=== PATIENT | male | born 1950 | race Hispanic/Latino ===

== ENCOUNTER → 2019-10-27 | Outpatient (CLI) | payer OTHER ==
[~2019-10-27] MED LIST: ALLO300T2 PO; AMLO5TAB4 PO; ASPI-1005 PO; HYDR-4457 PO; LEVO50TA4 PO; PANT40TA PO; RAMI10CA58 PO; SIMV40TA2 PO
== END | disposition home or self-care (01) ==
LOC: EDBD 10:40 → RAH 10:40
PROVIDERS: ATTEND Internal Medicine Critical Care Medicine
DX: Z13.6 Encounter for screening for cardiovascular disorders (principal)
CPT/HCPCS: 75571

== ENCOUNTER 2019-11-09 12:30 | Inpatient (IN) | payer MEDICARE ==
[~2019-11-09] VITALS: Ht 181.6 cm; Wt 120.7 kg
[2019-11-09 15:53] LABS: BASOPHILS % (AUTO) 0.6 % (0.0-5.0); EOSINOPHILS % (AUTO) 3.3 % (0.0-8.0); HEMATOCRIT 45.9 % (42-54); LYMPHOCYTES % (AUTO) 33.3 % (21.0-51.0); MEAN CORPUSCULAR HEMOGLOBIN 32.6 pg (27.0-33.0); MEAN CORPUSCULAR HGB CONC 35.1 g/dL (32.0-36.0); MEAN CORPUSCULAR VOLUME 92.9 fL (79-99); MONOCYTES % (AUTO) 7.9 % (3.0-13.0); NEUTROPHILS % (AUTO) 54.6 % (40.0-77.0); PLATELET COUNT (AUTO) 179 K/uL (130-400); RED BLOOD CELL COUNT(AUTO) 4.94 MIL/uL (4.50-6.20); WHITE BLOOD COUNT (AUTO) 7.9 K/uL (4.8-10.8)
[2019-11-09 16:05] LABS: CREATININE 0.9 mg/dL (0.5-1.5); INR 0.96 (0.85-1.15); PROTHROMBIN TIME 10.4 SEC (9.6-11.6)
[2019-11-09 16:50] LABS: APPEARANCE,URINE Clear (CLEAR); BILIRUBIN,URINE Negative (NEGATIVE); COLOR,URINE Yellow (YELLOW); GLUCOSE, URINE (UA) Negative (NEGATIVE); KETONES,URINE Negative (NEGATIVE); LEUKOCYTE ESTERASE ,URINE Negative (NEGATIVE); NITRATE,URINE Negative (NEGATIVE); OCCULT BLOOD,URINE Negative (NEGATIVE); PROTEIN,URINE Negative (NEGATIVE)
[2019-11-16] MEDS ORDERED: CEFAZOLIN 3GM /D5W 100ML 100 ML IV SCH (06:00)
[2019-11-22 14:25] VITALS: BP 133/84
[2019-11-22] MEDS ORDERED: PANT40TA PO (15:05)
[2019-11-22] MEDS ORDERED: AMLO5TAB4 PO (15:05)
[2019-11-22] MEDS ORDERED: RAMI10CA58 PO (15:05)
[2019-11-22] MEDS ORDERED: SIMV40TA2 PO (15:05)
[2019-11-22] MEDS ORDERED: LEVO50TA4 PO (15:05)
[2019-11-22] MEDS ORDERED: ALLO300T2 PO (15:05)
[2019-11-23] VITALS (24 sets, daily range): BP systolic 127–158; BP diastolic 67–89
[2019-11-23] MEDS ORDERED: CEFAZOLIN SODIUM 1 GM VIAL ONE ×3 (07:54→18:50)
[2019-11-23] MEDS ORDERED: LACTATED RINGERS 1000ML 1,000 ML IV ONE (07:54)
--- NOTE | 2019-11-23 08:00 | NUR ---
preop pt arrived via w/c in no distress. pt oriented to room and call light. pt has edema to rt knee and small scrape. will continue to monitor pt.
[2019-11-23] MEDS ORDERED: SUCCINYLCHOLINE CHLORIDE 20 MG/ML 10 ML VIAL ONE (09:39)
[2019-11-23] MEDS ORDERED: PROPOFOL 10 MG/ML 20ML VIAL IV ONE (09:39)
[2019-11-23] MEDS ORDERED: GLYCOPYRROLATE 1 MG/5 ML SYRINGE ONE (09:39)
[2019-11-23] MEDS ORDERED: LIDOCAINE PF 2% 5ML ABBOJECT ONE (09:39)
[2019-11-23] MEDS ORDERED: DEXAMETHASONE SOD PHOSPHATE 10MG/ML 1ML VIAL ONE (09:39)
[2019-11-23] MEDS ORDERED: ROCURONIUM 10MG/1ML SYR 10 MG/ML ML ONE (09:40)
[2019-11-23] MEDS ORDERED: MIDAZOLAM HCL 1 MG/ML 2ML VIAL ONE (09:40)
[2019-11-23] MEDS ORDERED: ONDANSETRON HCL 4 MG/2 ML VIAL ONE (09:40)
[2019-11-23] MEDS ORDERED: NEOSTIGMINE 5MG/5ML SYR IV ONE (09:40)
[2019-11-23] MEDS ORDERED: FENTANYL CITRATE PF 50 MCG/1 ML 2ML VIAL ONE ×3 (09:41→13:45)
[2019-11-23] MEDS ORDERED: ROPIVACAINE 0.5% 5MG/ML 30ML IJ ONE (10:29)
[2019-11-23] MEDS ORDERED: EPHEDRINE SULFATE 50 MG/ML AMPULE ONE (10:57)
[2019-11-23] MEDS ORDERED: MEPERIDINE-PF 25 MG/ML SYG ONE ×3 (13:15→14:34)
[2019-11-23] MEDS: SODIUM CHLORIDE 0.9% 1000ML 1,000 ML IV SCH ×2 (13:16→20:42)
[2019-11-23] MEDS ORDERED: KETOROLAC TROMETHAMINE 30MG/ML ONE (13:28)
[2019-11-23] MEDS ORDERED: TEMAZEPAM 15 MG CAPSULE PO PRN (13:30)
[2019-11-23] MEDS ORDERED: POTASSIUM CHLORIDE 20 MEQ ERTAB PO PRN (13:30)
[2019-11-23] MEDS: ACETAMINOPHEN EXTRA STRENGTH 500 MG TABLET PO SCH ×2 (13:30→20:09)
[2019-11-23] MEDS ORDERED: LIDOCAINE HCL-MPF 1% 2ML VIAL IV PRN (13:30)
[2019-11-23] MEDS ORDERED: DiphenhydrAMINE HCL 50 MG/ML VIAL IVP PRN (13:30)
[2019-11-23] MEDS ORDERED: TRAMADOL HCL 50 MG TABLET PO PRN (13:30)
[2019-11-23] MEDS ORDERED: OXYCODONE HCL 5 MG TAB PO PRN (13:30)
[2019-11-23] MEDS ORDERED: CALCIUM CARBONATE 500 MG TABLET PO PRN (13:30)
[2019-11-23] MEDS ORDERED: ONDANSETRON HCL 4 MG/2 ML VIAL IVP PRN (13:30)
[2019-11-23] MEDS ORDERED: FERROUS FUMARATE 324 MG TABLET PO PRN (13:30)
[2019-11-23] MEDS ORDERED: POTASSIUM CHLORIDE 20MEQ/100ML 100 ML IV PRN (13:30)
[2019-11-23] MEDS ORDERED: POTASSIUM CHLORIDE 10% ELIXIR 20 MEQ/15 ML UDCUP PO PRN (13:30)
[2019-11-23] MEDS ORDERED: TRANEXAMIC ACID 1000MG/10ML ONE (14:03)
[2019-11-23] MEDS ORDERED: KETOROLAC TROMETHAMINE 15MG/ML ONE (14:24)
[2019-11-23] MEDS: KETOROLAC TROMETHAMINE 15MG/ML IV PRN ×3 (14:24→19:10)
[2019-11-23] MEDS: OXYCODONE HCL 5 MG TAB PO PRN ×2 (16:04→20:08)
[2019-11-23] MEDS: CEFAZOLIN 3GM /D5W 100ML 100 ML IV SCH (18:51)
[2019-11-23] MEDS: PREGABALIN 25 MG CAP PO SCH (20:01)
[2019-11-23] MEDS: CELECOXIB 200 MG CAP PO SCH (20:01)
[2019-11-23] MEDS: ASPIRIN 81MG TAB.CHEW PO SCH (20:01)
[2019-11-23] MEDS ORDERED: HYDROMORPHONE HCL 2 MG/ML VIAL ONE (23:25)
[2019-11-24] MEDS: HYDROMORPHONE HCL 2 MG/ML VIAL IVP PRN ×6 (00:24→06:01)
[2019-11-24] MEDS: OXYCODONE HCL 5 MG TAB PO PRN ×4 (00:55→17:56)
[2019-11-24] MEDS: CEFAZOLIN 3GM /D5W 100ML 100 ML IV SCH (01:52)
--- NOTE | 2019-11-24 03:00 | NUR ---
ACTIVITY PATIENT ASSISTED TO EDGE OF BED TO DANGLE LEGS PER ORDERS. PATIENT TOLERATED WELL AND PATIENT WAS THEN ASSISTED BACK TO BED.
[2019-11-24 04:01] VITALS: BP 120/69
[2019-11-24 04:03] LABS: HEMATOCRIT 38.3 % (42-54); MEAN CORPUSCULAR HEMOGLOBIN 32.4 pg (27.0-33.0); MEAN CORPUSCULAR HGB CONC 33.7 g/dL (32.0-36.0); MEAN CORPUSCULAR VOLUME 96.2 fL (79-99); RED BLOOD CELL COUNT(AUTO) 3.98 MIL/uL (4.50-6.20); WHITE BLOOD COUNT (AUTO) 13.6 K/uL (4.8-10.8)
[2019-11-24 04:31] LABS: CREATININE 0.9 mg/dL (0.5-1.5); POTASSIUM 4.8 mmol/L (3.5-5.1)
[2019-11-24] MEDS ORDERED: LEVOTHYROXINE 50 MCG TABLET ONE (04:58)
[2019-11-24] MEDS: LEVOTHYROXINE 50 MCG TABLET PO SCH (05:00)
[2019-11-24] MEDS: ACETAMINOPHEN EXTRA STRENGTH 500 MG TABLET PO SCH ×3 (05:01→23:44)
[2019-11-24] MEDS ORDERED: PROMETHAZINE HCL 25 MG/ML 1ML AMPULE IM PRN (05:30)
[2019-11-24] MEDS ORDERED: HYDROMORPHONE PCA 10 MG/50 ML 50 ML IV PRN (05:30)
[2019-11-24] MEDS ORDERED: NALOXONE HCL 0.4 MG/1 ML ML IVP PRN (05:30)
[2019-11-24] MEDS ORDERED: METOCLOPRAMIDE 10 MG/2 ML VIAL IV PRN (05:30)
[2019-11-24 08:20] VITALS: BP 129/70
[2019-11-24] MEDS: POLYETHYLENE GLYCOL 3350 17 GM POWD.PACK PO SCH (08:47)
[2019-11-24] MEDS: ASPIRIN 81MG TAB.CHEW PO SCH ×2 (08:48→21:13)
[2019-11-24] MEDS: PANTOPRAZOLE SODIUM 40 MG TABLET.DR PO SCH (08:49)
[2019-11-24] MEDS: SIMVASTATIN 20 MG TABLET PO SCH (08:49)
[2019-11-24] MEDS: ALLOPURINOL 300 MG TABLET PO SCH (08:50)
[2019-11-24] MEDS: AMLODIPINE BESYLATE 5 MG TAB PO SCH (08:50)
[2019-11-24] MEDS: PREGABALIN 25 MG CAP PO SCH ×2 (08:50→21:13)
[2019-11-24] MEDS: CELECOXIB 200 MG CAP PO SCH ×2 (08:50→21:13)
[2019-11-24] MEDS: LISINOPRIL 40 MG TABLET PO SCH (08:51)
[2019-11-24] MEDS: TAMSULOSIN HCL 0.4 MG CAP.ER.24H PO SCH (09:00)
[2019-11-24] MEDS: SODIUM CHLORIDE 0.9% 1000ML 1,000 ML IV SCH (09:05)
--- NOTE | 2019-11-24 11:18 | NUR ---
[id number] Patient signed IM Letter, I faxed IM Letter to [phone] and placed in chart under consent tab.
[2019-11-24 11:39] VITALS: BP 122/74
--- NOTE | 2019-11-24 12:00 | NUR ---
DCP CM met with pt discussed dc plans. Pt is independent prior to admission, lives at home with spouse. Has a old walker requesting new one, bedside commode, cane, nebulizer machine. Denies any other equipments/services. Feels safe to go back home, still drives, spouse able to assist with transportation and needs as necessary. Pt agreeable for home w/HH and requesting new wkr, NOA signed for 's DME. DC plan to home w/HH and DME. CM to cont to follow up. Addendum: 11/24/19 at 1251 by ANGEL LOVE LVN CM Amended: Links added.
--- NOTE | 2019-11-24 12:05 | NUR ---
CM note: [facility] pending aproval Faxed order, clinicals, PT to [facility], confirmation received. Spoke to Alessandra cruz/[facility], will await clinicals, pending approval at this time, aware dcp tomorrow. Primary nurse aware. CM to cont to follow up.
--- NOTE | 2019-11-24 12:06 | NUR ---
CM note: [facility] pending approval for wkr CM faxed request and clinicals to [facility] for standard walker, confirmation received. Pt pending approval and delivery. Primary nurse aware. CM to cont to follow up.
[2019-11-24 16:36] VITALS: BP 96/61
[2019-11-24 16:40] VITALS: BP 96/61
--- NOTE | 2019-11-24 19:09 | NUR ---
CM Note: [facility] approval, [facility] approval for wkr CM spoke to Alessandra cruz/[facility], pt has approval. CM spoke to Terri cruz/[facility], pt has approval for standard walker no wheels, spouse to scrap picker from DME company today or tomorrow. Pt safe to DC once MD clear. Primary nurse made aware of the above. CM to cont to follow up.
[2019-11-24 20:12] VITALS: BP 118/67
[2019-11-25 00:12] VITALS: BP 124/66
[2019-11-25] MEDS: OXYCODONE HCL 5 MG TAB PO PRN ×2 (00:53→08:25)
[2019-11-25 04:12] VITALS: BP 120/63
[2019-11-25] MEDS: LEVOTHYROXINE 50 MCG TABLET PO SCH (06:18)
[2019-11-25] MEDS: ACETAMINOPHEN EXTRA STRENGTH 500 MG TABLET PO SCH (06:19)
[2019-11-25 08:21] VITALS: BP 125/70
[2019-11-25] MEDS: SIMVASTATIN 20 MG TABLET PO SCH (08:23)
[2019-11-25] MEDS: PANTOPRAZOLE SODIUM 40 MG TABLET.DR PO SCH (08:23)
[2019-11-25] MEDS: AMLODIPINE BESYLATE 5 MG TAB PO SCH (08:23)
[2019-11-25] MEDS: PREGABALIN 25 MG CAP PO SCH (08:23)
[2019-11-25] MEDS: ASPIRIN 81MG TAB.CHEW PO SCH (08:23)
[2019-11-25] MEDS: LISINOPRIL 40 MG TABLET PO SCH (08:23)
[2019-11-25] MEDS: TAMSULOSIN HCL 0.4 MG CAP.ER.24H PO SCH (08:24)
[2019-11-25] MEDS: ALLOPURINOL 300 MG TABLET PO SCH (08:24)
[2019-11-25] MEDS: CELECOXIB 200 MG CAP PO SCH (08:24)
[2019-11-25] MEDS: POLYETHYLENE GLYCOL 3350 17 GM POWD.PACK PO SCH (08:25)
[2019-11-25] MEDS ORDERED: HYDR-4457 PO (10:34)
[2019-11-25] MEDS ORDERED: ASPI-1005 PO (10:34)
[2019-11-25 11:08] VITALS: BP 96/63
--- NOTE | 2019-11-25 11:35 | NUR ---
DISCHARGE PATIENT GIVEN DISCHARGE INSTRUCTIONS AND EDUCATION ON FOLLOW UP APPOINTMENTS, NEW RX (NORCO, ASA), INCISION CARE, WBAT STATUS AND KOLBY DRESSING CARE. PATIENT VERBALIZED UNDERSTANDING OF ALL EDUCATION GIVEN VIA TEACH BACK. NO CONCERNS VOICED. KOLBY DRESSING CHANGED. OLD KOLBY DRESSING REMOVED, SMALL AMOUNT OF BLOOD NOTED, INCISION CLEANED WITH BETADINE, NEW KOLBY DRESSING APPLIED. SEAL INTACT. NO S/S OF INFECTION. PATIENT UNDERSTANDS THAT KOLBY NEEDS TO BE REMOVED ON 11/30/19 REPORT CALLED TO LYNN PHILIPPE RN NURSE AT [facility], LYNN AWARE OF PT RX(NORCO, ASA). WBAT, F/U APPOINTMENT.
[2019-11-26] MEDS ORDERED: BISACODYL 10 MG SUPP.RECT RC PRN (13:30)
== END 2019-11-25 13:05 | disposition home health service (06) | DRG 470 ==
LOC: EDSTATUS 11-16 12:30 → DAHIP 11-23 07:31 → 3AH 11-23 13:26
PROVIDERS: ADMIT Orthopaedic Surgery; ATTEND Orthopaedic Surgery
PROC: 0SRC0J9 Replacement of Right Knee Joint with Synthetic Substitute, Cemented, Open Approach (ICD-10-PCS; principal; 2019-11-23 10:30)
DX: M17.11 Unilateral primary osteoarthritis, right knee (principal); I10 Essential (primary) hypertension; E03.9 Hypothyroidism, unspecified; E78.00 Pure hypercholesterolemia, unspecified; M10.9 Gout, unspecified; R26.89 Other abnormalities of gait and mobility; G89.29 Other chronic pain; M21.061 Valgus deformity, not elsewhere classified, right knee; K21.9 Gastro-esophageal reflux disease without esophagitis; J30.2 Other seasonal allergic rhinitis; Z20.828 Contact with and (suspected) exposure to other viral communicable diseases; Z96.643 Presence of artificial hip joint, bilateral; Z87.891 Personal history of nicotine dependence; Z98.41 Cataract extraction status, right eye; Z90.49 Acquired absence of other specified parts of digestive tract; Z85.038 Personal history of other malignant neoplasm of large intestine
CPT/HCPCS: 36415; 80048; 81003; 85025; 85027; 85610; 87641; 88305; 88311; 93005; 97039; A4606; G0378; J0330; J0690; J1100; J1170; J1885; J2001; J2175; J2250; J2405; J2704; J2710; J2795; J3010; J3490; J7120; U0003